=== PATIENT | female | born 1970 | race Caucasian/White ===

== ENCOUNTER 2019-02-12 13:56 | Observation (INO) ==
[2019-02-12] MEDS ORDERED: ZOFRAN IV ONE (14:14)
[2019-02-12] MEDS ORDERED: MORPHINE IV ONE (14:14)
[2019-02-12 14:25] LABS: BASO# 0.03 X1000 (0.0-0.2); BASO% 0.3 % (0.0-0.8); EOS# 0.17 X1000 (0.0-0.7); EOS% 1.6 % (0.0-10.0); HEMATOCRIT 36.1 % (37.0-47.0); HEMOGLOBIN 12.8 g/dL (12.0-16.0); IMM GRAN# 0.02 X1000 (0.0-0.04); IMM GRAN% 0.2 % (0.0-0.5); LYMPH# 3.46 X1000 (1.2-3.4); LYMPH% 32.5 % (20.5-51.1); MCH 30.9 PG (27-31); MCHC 35.5 g/dL (33-37); MCV 87.2 FL (81-99); MONO# 0.83 X1000 (0.11-0.59); MONO% 7.8 % (1.7-9.3); MPV 9.1 FL (7.4-10.4); NEUT# 6.13 X1000 (1.4-6.5); NEUT% 57.6 % (42.2-75.2); PLT 247 X1000 (130-400); RBC 4.14 XMIL (4.2-5.4); WBC 10.64 X1000 (4.8-10.8)
[2019-02-12 14:29] LABS: INR 0.92; PROTIME 12.8 Seconds (11.0-16.0)
[2019-02-12 14:30] LABS: PTT 31.9 Seconds (22.3-41.8)
[2019-02-12] MEDS ORDERED: ATIVAN IV ONE (14:34)
[2019-02-12 14:36] LABS: AGAP 12; ALBUMIN 3.9 g/dL (3.5-5.0); ALKALINE PHOSPHATASE 97 U/L (32-104); BUN 12 mg/dL (8-22); CALCIUM 8.8 mg/dL (8.8-10.2); CHLORIDE 104 mmol/L (98-107); CK PROFILE 124 U/L (24-173); COSMO 275; CREATININE 0.6 mg/dL (0.5-0.9); ESTIMATED GFR > 60; GLUCOSE 96 mg/dL (70-104); GOT 16 U/L (10-30); GPT 16 U/L (10-36); POTASSIUM 3.6 mmol/L (3.5-5.1); SODIUM 138 mmol/L (136-145); TCO2 22 mmol/L (25-35); TOTAL PROTEIN 6.9 g/dL (6.3-8.3)
--- NOTE | 2019-02-12 14:36 | EKG Report ---
Test Performed on : 02/12/2019 1:58:04 PM Test Reason : CP Blood Pressure : / mmHG Vent. Rate : 094 BPM Atrial Rate : 094 BPM P-R Int : 118 ms QRS Dur : 118 ms QT Int : 392 ms P-R-T Axes : 056 -21 097 degrees QTc Int : 490 ms Normal sinus rhythm. Septal infarct , age undetermined ST & T wave abnormality, consider lateral ischemia Abnormal ECG When compared with ECG of 08-FEB-2019 04:14, (Unconfirmed) Left bundle branch block is no longer present Septal infarct is now present Unconfirmed Result
--- NOTE | 2019-02-12 14:48 | Diag Imaging Result Doc PS360 ---
EXAM: CHEST-2 VIEWS HISTORY: CP TECHNIQUE: Chest two views COMPARISON: 10/29/2016 FINDINGS: The lungs are well expanded. The heart is not enlarged. The vessels are not distended. There are no infiltrates. No pleural effusions. IMPRESSION: No acute abnormality. Electronically signed by Robert Sotelo 02/12/2019 2:46 PM
[2019-02-12] MEDS ORDERED: NICODERM PATCH TD ONE (15:10)
--- NOTE | 2019-02-12 15:12 | PROVIDER DOCUMENTATION ---
This chart was entered by Sharon Newman Scribe, acting as scribe for Pramod Woodall MD. HPI-Chest Pain - General Chief Complaint: Chest Pain Stated Complaint: chest pain Time Seen by Provider: 02/12/19 14:00 Source: patient, EMS (first response) Allergies/Adverse Reactions: Patient Allergies Allergy/AdvReac Type Severity Reaction Status Date / Time naproxen Allergy NAUSEA/VOMI Verified 02/12/19 14:05 TING Home Medications: Home Medication List Medication Instructions Recorded Confirmed Last Taken Type Escitalopram [Lexapro] 20 mg PO DAILY 02/12/19 02/12/19 Unknown History Lisinopril 20 mg PO DAILY 02/12/19 02/12/19 Unknown History - History of Present Illness-CP Nature of Presenting Problem: 48 yowf presents to the ed via ems wioth c/o chest pain sob cough nausea and vomiting while getting ready to leave work. pt has family at bedside . pt sts saw dr mendoza over last weekend and some of HTN medications were stopped. pt sts has felt great up to this episode DATABASE TESTER Location: reports: substernal Chest Pain Radiation: reports: no radiation Quality of Pain: reports: pressure Severity in ED: moderate (810) Onset/Duration: just prior to arrival Timing: still present Context/Activities at Onset: reports: light activity Modifying Factors: improves with: nothing Associated Symptoms: reports: diaphoresis, fatigue, nausea, shortness of breath, vomiting. denies: abdominal pain, back pain Nitro Today/Relief: 0.4 mg x 1, provided by EMS Aspirin Treatment Today: 325 mg x 1, provided by EMS Similar Symptoms Previously?: No Recently Seen Here or By Another Healthcare Provider: No Review of Systems - Adult - REVIEW OF SYSTEMS - ADULT Constitutional: denies: chills, fever Eyes: reports: no symptoms reported Ears, Nose, Mouth & Throat: reports: no symptoms reported Cardiovascular: reports: chest pain. denies: palpitations, syncope Respiratory: reports: see HPI, cough, shortness of breath. denies: wheezing Gastrointestinal: reports: nausea, vomiting. denies: abdominal pain, diarrhea Genitourinary: reports: no symptoms reported Musculoskeletal: denies: back pain, neck pain Integumentary: reports: no symptoms reported Neurological: denies: dizziness/vertigo, headache/migraines Psychiatric: reports: no symptoms reported Endocrine: reports: no symptoms reported Hematologic/Lymphatic: reports: no symptoms reported Allergic/Immunologic: reports: no symptoms reported All Other Systems: Reviewed and Negative Past History - Adult - PAST MEDICAL HISTORY-ADULT Review of Records: reports: Nursing Assessment Review, Medications Reviewed Major Childhood Illnesses: reports: denies history Cardiovascular: reports: HTN Respiratory: reports: COPD Gastrointestinal: reports: denies history Obstetrical/Gynecological: reports: denies history Genitourinary: reports: denies history Musculoskeletal: reports: denies history Hand Dominance: Right Handed Neurological: reports: denies history Psychiatric: reports: depression Endocrine/Immune: reports: denies history Other Conditions: reports: denies history - PRIOR SURGERIES/PROCEDURES Surgical/Procedure History: reports: hysterectomy, BTL, tonsillectomy - IMMUNIZATION STATUS Childhood Immunizations: See Nurse Assessment Flu Vaccine: See Nurse Assessment - FAMILY HISTORY Family History: reviewed, not pertinent - SOCIAL HISTORY Smoking: cigarettes, less than 1 pack/day Provider spent 3-5 mins advising pt. on dangers of tobacco.: Discussed manners to quit use, and f/u contacts for add'l counseling. Substance Use: denies Alcohol Use Frequency: never Living Situation: family Physical Exam-General - PHYSICAL EXAM-ADULT Initial Vital Signs Reviewed: Yes - CONSTITUTIONAL General Appearance: mild distress, lethargic - EYES Eyes: PERRL/EOMI, pink conjunctivae - HEAD, EARS, NOSE, MOUTH & THROAT HENMT: dental decay. negative: moist mucous membranes (dry oral) - NECK Neck: full range of motion, supple, normal inspection - RESPIRATORY Respiratory: chest non-tender, lungs clear, normal breath sounds - CARDIOVASCULAR Cardiovascular: normal peripheral pulses, regular rate, rhythm - CHEST (BREASTS) Chest/Breast: deferred - GASTROINTESTINAL (ABDOMEN) Abdominal Exam: normal bowel sounds, non tender, soft - GENITOURINARY Female Genitalia/Pelvic Exam: deferred Rectal Exam: deferred Hemoccult Exam: deferred - LYMPHATIC Lymphatic: no adenopathy - MUSCULOSKELETAL Back Exam: normal inspection, no CVA tenderness, no vertebral tenderness Extremity: no pedal edema, no calf tenderness, normal capillary refill, pelvis stable - SKIN Integumentary: normal turgor, warm/dry, pallor - NEUROLOGIC Neurologic: grossly normal, no motor/sensory deficits - PSYCHIATRIC Psych/Mental Status: normal mood/affect, normal thought content, normal thought process, oriented x 3 - HEART Score HEART Score: History: Moderately Suspicious HEART Score: ECG: Non-Specific Repolarization Disturbance/LBBB/PM HEART Score: Age: 45-65 Years HEART Score: Risk Factors for Atherosclerotic Disease: 1 or 2 Risk Factors HEART Score: Troponin: < or = Normal Limit Total HEART Score:: 4 Progress - PLAN OF CARE/RESULTS Progress/Plan/Lab Results: Vital Signs - 8 hr 02/12/19 14:02 02/12/19 14:32 02/12/19 15:02 Temperature 99.2 F Pulse Rate 86 91 H 86 Respiratory Rate 15 21 18 Blood Pressure 120/80 123/86 112/72 O2 Sat by Pulse Oximetry 98 99 98 Laboratory Results - last 24 hr 02/12/19 02/12/19 02/12/19 14:00 14:00 14:00 WBC 10.64 RBC 4.14 L Hgb 12.8 Hct 36.1 L MCV 87.2 MCH 30.9 MCHC 35.5 RDW Std Deviation 13.0 Plt Count 247 MPV 9.1 Immature Gran % (Auto) 0.2 Neut % (Auto) 57.6 Lymph % (Auto) 32.5 [place] % (Auto) 7.8 Eos % (Auto) 1.6 Baso % (Auto) 0.3 Immature Gran # (Auto) 0.02 Neut # (Auto) 6.13 Lymph # (Auto) 3.46 H [place] # (Auto) 0.83 H Eos # (Auto) 0.17 Baso # (Auto) 0.03 PT INR PTT (Actin FS) Sodium 138 Potassium 3.6 Chloride 104 Carbon Dioxide 22 L Anion Gap 12 BUN 12 Creatinine 0.6 Estimated GFR/1.73 m2 > 60 BUN/Creatinine Ratio 20 Glucose 96 Calculated Osmolality 275 Calcium 8.8 Total Bilirubin 0.40 AST 16 ALT 16 Alkaline Phosphatase 97 Creatine Kinase 124 Troponin T Knj-O-Bshxqzrakss Pept 152 Total Protein 6.9 Albumin 3.9 Globulin 3.0 Albumin/Globulin Ratio 1.0 02/12/19 02/12/19 14:00 14:00 WBC RBC Hgb Hct MCV MCH MCHC RDW Std Deviation Plt Count MPV Immature Gran % (Auto) Neut % (Auto) Lymph % (Auto) [place] % (Auto) Eos % (Auto) Baso % (Auto) Immature Gran # (Auto) Neut # (Auto) Lymph # (Auto) [place] # (Auto) Eos # (Auto) Baso # (Auto) PT 12.8 INR 0.92 PTT (Actin FS) 31.9 Sodium Potassium Chloride Carbon Dioxide Anion Gap BUN Creatinine Estimated GFR/1.73 m2 BUN/Creatinine Ratio Glucose Calculated Osmolality Calcium Total Bilirubin AST ALT Alkaline Phosphatase Creatine Kinase Troponin T < 0.010 Zin-A-Zbnwcfnbwbc Pept Total Protein Albumin Globulin Albumin/Globulin Ratio Orders Category Date Time Status Cardiac Monitoring DIRECTED Care 02/12/19 14:07 Active Oxygen Therapy- ED Nursing DIRECTED Care 02/12/19 14:07 Active Saline Loc NOW Care 02/12/19 14:07 Active CHEST-2 VIEWS [RAD] Stat Exams 02/12/19 14:07 Completed CBC WITH ELECTRONIC DIFF [HEME] Stat Lab 02/12/19 14:00 Completed CK PROFILE [SP CHEM] Stat Lab 02/12/19 14:00 Completed COMPREHENSIVE METABOLIC PANEL [CHEM] Stat Lab 02/12/19 14:00 Completed PRO B-NATRIURETIC PEPTIDE Stat Lab 02/12/19 14:00 Completed PROTIME WITH INR [COAG] Stat Lab 02/12/19 14:00 Completed PTT [COAG] Stat Lab 02/12/19 14:00 Completed TROPONIN T Stat Lab 02/12/19 14:00 Completed Lorazepam [Ativan] Med 02/12/19 14:34 Discontinued 1 mg IV NOW ONE Morphine Med 02/12/19 14:14 Discontinued 4 mg IV NOW ONE Ondansetron [Zofran] Med 02/12/19 14:14 Discontinued 4 mg IV NOW ONE CP/SOB/Palp >45 yrs of Age Stat Oth 02/12/19 14:07 Ordered EKG [EKG] Stat Ther 02/12/19 14:07 Draft Result Diagrams: 02/12/19 14:00 02/12/19 14:00 - REASSESSMENT Reassessment #1 Time Reassessed: 14:59 Status: unchanged Reassessment #2 Time Reassessed: 15:08 Status: improving (ekg very similar tracing. no elev troponin) - EKG 1 Time of EKG reading by physician:: 13:58 EKG Read and Signed by:: Pramod Woodall EKG Interpretation (*Must complete 3 of following elements*): Abnormal Rate: 94 Rhythm: nsr [place]: normal QRS: RBB (partial) [place] Interval: normal Comments: ST and T wave abnormality, consider lateral ischemia - XRAY 1 XRAY: Bilateral XRAY Study: Chest Impression: See EMR Report (EXAM: CHEST-2 VIEWS HISTORY: CP TECHNIQUE: Chest two views COMPARISON: 10/29/2016 FINDINGS: The lungs are well expanded. The heart is not enlarged. The vessels are not distended. There are no infiltrates. No pleural effusions. IMPRESSION: No acute abnormality. Electronically signed by Robert Sotelo 02/12/2019 2:46 PM 02/12/19 1446 Interpreting Physician: Robert Sotelo MD Dictated Date/Time: 02/12/19 1445 cc: Pramod Woodall MD;) - CONSULTS/PCP/HOSPITALIST Notification #1 *Consult/PCP/Hospitalist*: DR TIESHA KNOWLES Time Discussed: 15:00 Consult Disposition: Admit Departure - Departure Date of Disposition Decision: 02/12/19 Time of Disposition Decision: 15:09 DIAGNOSIS: Tobacco use disorder Chest pain Qualifiers: Chest pain type: unspecified Qualified Code(s): R07.9 - Chest pain, unspecified Disposition: ADMITTED INPATIENT 09 Certified Medical Emergency: Emergent Condition: Stable Additional Freetext Instructions: ED Follow Up Instructions: You have been treated by a care provider in the Emergency Department. These instructions are being provided to you so you can have an understanding of how to care for yourself upon discharge. Upon discharge from the Emergency Department, you are responsible for making arrangements for follow-up care by a physician of your choice. Take all prescribed medications as directed. Return to the Emergency Department immediately for any new or worsening symptoms. You may call the Physician Referral phone number at [phone] to obtain a list of Physicians who are taking new patients. - Critical Care Note This patient required my direct & personal management of CC.: No Attestation - Physician/ AMPARO Attestation Patient care was provided by Advanced Practice Provider:: No The physician spent face to face time with patient:: Yes Advanced Practice Provider documentation review:: Supervising physician onsite and consulted in the evaluation and care of this patient. The physician did have a face to face encounter with the patient. This chart was documented by the indicated scribe, ([place],Sharon, Scribe) and accurately reflects the services I performed and decisions made by me, Pramod Woodall MD, as attested by the provider's signature.
[2019-02-12] MEDS ORDERED: NS 1,000 ML IV ONE (15:21)
--- NOTE | 2019-02-12 16:15 | ED EKG INTERP ---
This chart was entered by Sharon Newman Scribe, acting as scribe for Pramod Woodall MD. EKG Interpretation - EKG Time of EKG reading by physician:: 16:07 EKG Read and Signed by:: Pramod Woodall EKG Interpretation (*Must complete 3 of following elements*): Abnormal Rate: 80 Rhythm: nsr [place]: normal QRS: LBB [place] Interval: normal ST Wave: normal Prior EKG Comparison: changes noted Attestation - Physician/ AMPARO Attestation Patient care was provided by Advanced Practice Provider:: No The physician spent face to face time with patient:: Yes Advanced Practice Provider documentation review:: Supervising physician onsite and consulted in the evaluation and care of this patient. The physician did have a face to face encounter with the patient. This chart was documented by the indicated scribe, (Sharon Newman Scribe) and accurately reflects the services I performed and decisions made by me, Pramod Woodall MD, as attested by the provider's signature.
[2019-02-12] MEDS ORDERED: NICODERM PATCH TD PRN (17:10)
--- NOTE | 2019-02-12 17:20 | EKG Report ---
Test Performed on : 02/12/2019 4:07:01 PM Test Reason : CP Blood Pressure : / mmHG Vent. Rate : 080 BPM Atrial Rate : 080 BPM P-R Int : 124 ms QRS Dur : 126 ms QT Int : 426 ms P-R-T Axes : 022 -26 095 degrees QTc Int : 491 ms Normal sinus rhythm. Left bundle branch block Abnormal ECG When compared with ECG of 12-FEB-2019 13:58, (Unconfirmed) Left bundle branch block is now present Criteria for Septal infarct are no longer present Unconfirmed Result
[2019-02-12] MEDS: TYLENOL PO PRN (20:20)
--- NOTE | 2019-02-12 22:54 | HISTORY AND PHYSICAL ---
CHIEF COMPLAINT: Chest pain. HISTORY OF PRESENT ILLNESS: This is a 48-year-old female with a history of coronary artery disease, hypertension, COPD. She presents to the emergency room complaining of chest pressure while at work. She stated that she was getting ready to clock out at a work. She felt like someone was sitting on her chest. She could not take a deep breath. She said she felt that shortly after her heart started pounding like it was going to pound out of her chest, she took became real weak, started sweating, got nauseated and vomited. EMS was called. She was given nitroglycerin en route with no change in pain and symptoms initially. After being given Ativan and morphine, she denied any pain or any chest pressure. She reports anxiety attacks in the past with similar symptoms. The patient states that she has been on losartan for quite some time and she was very concerned over the recall of this medication. Therefore, she discussed this with her primary care provider and she was started on lisinopril 20 mg daily. Three weeks ago, she stated she went back for a recheck, hydrochlorothiazide 12.5 mg daily. Was added. On the , she had a syncopal episode at work. Was brought into the emergency room and found to be orthostatic per vital signs. Her medications were reviewed by the emergency room physician who had her stop everything except lisinopril 20 mg and her Lexapro. She states that she felt better than she had in quite some time after that until this episode today. PAST MEDICAL HISTORY: COPD, hypertension, depression. PAST SURGICAL HISTORY: Hysterectomy, tubal ligation, tonsillectomy. SOCIAL HISTORY: She smokes less than a half a pack a day. She denies alcohol or illicit drug use. ALLERGIES: Naprosyn which causes nausea and vomiting. HOME MEDICATIONS: Lexapro 20 mg p.o. daily, lisinopril 20 mg p.o. daily. REVIEW OF SYSTEMS: Discussed with patient with pertinent positives stated in the HPI. She denied any diarrhea, constipation, black or bloody vomitus or stools, any recent weight loss or weight gain, any fevers, chills, any hematuria, dysuria, frequency, urgency. PHYSICAL EXAMINATION: GENERAL: This is a 48-year-old female who is sitting up in the stretcher playing a game on her phone in no distress. She is sleepy after receiving Ativan and morphine. VITAL SIGNS: Blood pressure is 126/77 with heart rate of 69, respirations are 18, temperature is 97.7 degrees with O2 saturation that are 98 to 100 percent on 2 L nasal cannula. EYES: Pupils are equal, round, react to light. EOMs are intact. Sclerae are anicteric. HENT: Head is normocephalic, atraumatic. Mucous membranes are moist. NECK: Supple with trachea midline. CARDIOVASCULAR: Regular rate and rhythm. S1 and S2 appreciated. She has no lower extremity edema. Peripheral pulses are palpable x4 extremities. Calves are nontender. PULMONARY: Breath sounds are clear with no increased work of breathing noted. Chest rise and fall symmetric with respiration. Chest wall is nontender to palpation. GASTROINTESTINAL: Abdomen is soft, nontender, nondistended with bowel sounds in all 4 quadrants. NEUROLOGIC: She is alert and oriented x3. SKIN: Warm and dry. ASSESSMENT AND PLAN 1. Chest Pressure - resolved after Morphine and Ativan. Trend cardiac markers to rule out acute coronary syndrome. Telemetry 2. Anxiety 3. Nausea and Vomiting - resolved before arrival to ER 4. COPD No exacerbation 5. Hypertension monitor vital signs, continue home meds 6. Depression Continue home meds 7. Nicotine use - smoking cessation Dictated by ASHLI Carrion for Colton Vicente MD cc: ASHLI Carrion MD [facility]
--- NOTE | 2019-02-13 00:05 | HISTORY AND PHYSICAL ---
ADDENDUM: Patient seen and examined by myself. Full note dictated and discussed with nurse practitioner. The patient notes that she is having chest pain, shortness of breath, hurts take a deep breath, feels as though something heavy is sitting on her chest. States it hurts to press her chest. On physical, she is awake, alert. She is in no distress. She does have some remote history of an abnormal chemical induced stress test although notes that she did not have a heart catheterization or any followup. We will admit her to the hospital, rule out DE. Check an echocardiogram. Certainly feel though this may be musculoskeletal as it hurts when she is palpated on her chest wall. If testing is negative, hopefully she can discharge home in the a.m. cc: Colton Vicente MD
--- NOTE | 2019-02-13 01:40 | ECHO REPORT ---
ORDER DATE: 02/12/2019 MEASUREMENTS.: Septal thickness 1.0, left ventricular internal diameter in diastole 4.3, left ventricular internal diameter in systole 2.5, posterior wall thickness 1.0, left atrium 3.3, aortic root 3.1 SUMMARY: 1. Fair quality study. Intravenous echo contrast agent Definity was utilized to enhance endocardial definition. 2. Aortic valve is without evidence of structural abnormality and opens adequately on 2- dimensional images. Peak gradient across the aortic valve is less than 10 mmHg. Mitral, tricuspid, and pulmonic valves are without evidence of structural abnormality with mild mitral regurgitation and very mild tricuspid regurgitation. Estimated systolic PA pressure by Doppler is 35 mmHg. Aortic root is normal size. 3. Normal left ventricular dimensions demonstrated. Estimated left ventricular ejection fraction appears to be at least 65%. No regional wall motion abnormalities are evident. Intravenous echo contrast agent Optison was utilized to enhance endocardial definition. Left atrium, right atrium, right ventricle are normal in size with grossly preserved right ventricular systolic function. 4. Intravenous agitated saline contrast study performed and demonstrates no evidence of right-to- left intracardiac shunting. 5. No pericardial effusion. 6. Appearance of inferior vena cava suggests normal central venous pressure. CONCLUSIONS: 1. Mild mitral regurgitation. 2. Very mild tricuspid regurgitation. 3. Estimated ejection fraction at least 65% without regional wall motion abnormality evident. cc: MD Vandana Vaz CRNP
[2019-02-13] MEDS: TYLENOL PO PRN (01:59)
[2019-02-13] MEDS ORDERED: NS 150 ML IV SCH (02:30)
[2019-02-13] MEDS ORDERED: NS 1,000 ML IV ONE ×3 (02:46→23:45)
[2019-02-13 07:48] VITALS: BP 128/77
[2019-02-13] MEDS ORDERED: PRINIVIL PO SCH (09:00)
[2019-02-13] MEDS ORDERED: LEXAPRO PO SCH (09:00)
--- NOTE | 2019-02-14 10:33 | DISCHARGE SUMMARY ---
ADMISSION DATE: 02/12/2019 DISCHARGE DATE: 02/13/2019 DISCHARGE DIAGNOSES: 1. Chest pain, resolved. 2. Hypertension. 3. Depression. 4. Chest wall pain. BRIEF HOSPITAL COURSE: Patient is a 48-year-old female who presented to the hospital secondary to chest pain. She was treated in the usual fashion, ruled out for an NV. Thankfully, on discharge, she is having no further complaints. Overall is feeling better. DISPOSITION: Patient will be discharged home. She will continue her home medications without any changes. Discussed with her that she needs to stop smoking. Discussed that she needs to adjust the way that she sits and not prop up or push or pull with her left arm for the next few days to allow her chest wall pain to resolve. TIME SPENT: Greater than 30 minutes was spent in total care. cc: Colton Vicente MD
== END 2019-02-13 11:46 | disposition home or self-care (01) ==
LOC: P.MEDSURG 13:56 → P.ED 13:56
PROVIDERS: ATTEND Family Medicine
CPT/HCPCS: 71020; 71046; 80053; 82550; 83880; 84484; 85025; 85610; 85730; 93005; 93306; 94761; 96361; 96374; 96375; 99285; A9270; C8929; J2060; J2270; J2405; J7030; Q9957